=== PATIENT | female | born 1985 | race Caucasian/White ===

== ENCOUNTER 2022-01-27 15:15 | Emergency (ER) | payer OTHER, SELFPAY ==
[2022-01-27 15:24] VITALS: BP 116/65; PULSE 97; RESP 16; TEMP 37.2; O2SAT 98
--- NOTE | 2022-01-27 15:58 | ED.URI ---
HPI - URI/Sore Throat General Chief Complaint: Upper Respiratory Infection Stated Complaint: Fever/Headache/Nausea Time Seen by Provider: 01/27/22 15:55 Source: patient, RN notes reviewed and old records reviewed Mode of arrival: ambulatory Limitations: no limitations History of Present Illness HPI Narrative: 37-year-old male presents to Express fever to 103F headache and the past 24-36 hours patient states he was COVID positive at [place] Related Data Allergies Allergy/AdvReac Type Severity Reaction Status Date / Time No Known Allergies Allergy Verified 01/27/22 15:38 Course Vital Signs Vital signs: Vital Signs Temperature 37.2 C 01/27/22 15:24 Pulse Rate 97 01/27/22 15:24 Respiratory Rate 16 01/27/22 15:24 Blood Pressure 116/65 01/27/22 15:24 Pulse Oximetry 98 01/27/22 15:24 Oxygen Delivery Room Air 01/27/22 15:24 Temperature 37.2 C 01/27/22 15:24 Pulse Rate 97 01/27/22 15:24 Respiratory Rate 16 01/27/22 15:24 Blood Pressure 116/65 01/27/22 15:24 Pulse Oximetry 98 01/27/22 15:24 Oxygen Delivery Room Air 01/27/22 15:24 MDM - URI/Sore Throat Lab Data Labs: Influenza A Screen Negative Reference Range: Negative Influenza B Screen Negative Reference Range: Negative Strep Screen Presumptive Negative *(Reference Range: Negative)* Discharge Plan Discharge Clinical Impression: Acute viral syndrome Patient Disposition: Home, Self-Care Condition: Stable Instructions: Antibiotic Form, Viral Syndrome (ED) Additional Instructions: Increase fluids especially juices and water Glvb-ldc-[id number] cough and cold medicine of your choice for your symptoms Claritin, Zyrtec, or Lupe daily Medrol dose pack directed--take with food heat to the face 20-30 minutes 4-6 times a day for pain Salt water gargles, throat lozenges or throat sprays as desired If your symptoms persist, change or worsen significantly before you can contact your personal physician then please, without delay, go to the emergency department for further evaluation. Follow-up with PCP in 7-10 days or sooner if needed Prescriptions: New methylprednisolone [Medrol ([place])] 4 mg tablets,dose pack 4 mg PO DAILY Qty: 21 0RF Rx Instructions: take per package instruction Follow-up/Referrals: PHYSICIAN,DESIGN AND SALES CONSULTANT [Primary Care Provider] - Time of Disposition: 16:23 Quality [place] Coma Scale Eyes: Open Verbal: Oriented and Alert Motor: Follows Commands [place] Coma Total Score: 15
--- NOTE | 2022-01-27 16:18 | ED.URI ---
HPI - URI/Sore Throat General Chief Complaint: Upper Respiratory Infection Stated Complaint: Fever/Headache/Nausea Time Seen by Provider: 01/27/22 15:55 Source: patient, RN notes reviewed and old records reviewed Mode of arrival: ambulatory Limitations: no limitations History of Present Illness HPI Narrative: 37 year old male who presets to express care with complaints of headache, nausea, and fevers up to 101F and generalized malaise for the past 24 hours. Patient reports that he was diagnosed with COVID 2 weeks. Patient denies any shortness of breath, no acute cough or congestion verbalized. Patient reports that he has not had flu shot this season. Patient has been taking Ibuprofen for his symptoms. MD elicited complaint: fever and other (headache nausea) Pertinent past history: other (covid 2 weeks ago) Onset (ago): day(s) (day 2 of symptoms) Consistency: constant Pain scale (0-10): 5 Treatments prior to arrival: ibuprofen Related Data Allergies Allergy/AdvReac Type Severity Reaction Status Date / Time No Known Allergies Allergy Verified 01/27/22 15:38 Review of Systems Review of Systems: CONSTITUTIONAL: Reports malaise, chills, sweats, or fever. EYES: Denies visual changes, redness, or discharge. ENT: Reports rhinorrhea, congestion, sinus pain,no otalgia and sore throat. CARDIOVASCULAR: Denies chest pain, palpitations, or edema. RESPIRATORY: Reports occasional dry cough ? Denies dyspnea. GASTROINTESTINAL: Denies abdominal pain, positive for nausea, no vomiting, diarrhea SKIN: Denies rash or itching. MUSCULOSKELETAL:Reports myalgia. NEUROLOGIC:Reports headache. All systems reviewed & are unremarkable except as noted in HPI and below PMFSH Past Medical History Medical History COVID-05 January 2022 Social History Social History (Updated 02/05/22 @ 10:47 by Shila Jorge NP) Smoking status: Never smoker Alcohol intake: current Alcohol use details: social Substance use type: does not use Gender identity (if verbalized by the patient): Male Comments At time of signature, agree with nursing past medical, surgical, social and family history. There is no relevant family history pertinent to the presenting complaint Exam Narrative: GENERAL: Well-appearing, well-nourished, and in no acute distress. HEAD: Normocephalic EYES: PERRLA, conjunctivae clear ENT: Nares clear, turbinates edematous and erythematous, clear discharge. Mucous membranes moist. TM pearly hunt with dull light reflex bilaterally; no tragal tenderness. Oropharynx erythematous without lesions. Tonsils not enlarged and without exudate, no drooling, no hoarseness, no trismus, uvula midline.post nasal discharge NECK: Supple. No lymphadenopathy CHEST: Clear to auscultation, breath sounds equal. No wheezing, rhonchi, rales, or stridor. No respiratory distress, speaks in full sentences.dry cough, SAO2 98% on room air HEART: Regular rate and rhythm. No murmur heard. SKIN: Warm, dry, no rash. NEURO: Alert and oriented x3. PSYCH: Normal mood and affect Course Course Emergency Course: Patient is aware of diagnosis, understands and agrees to treatment plan.? Anticipatory guidance given.? Patient agrees to follow-up as directed and is aware of reasons to seek care at the emergency department. Portions of this record may have been created with voice recognition software Level of Care: Express Care Visit Vital Signs Vital signs: Vital Signs Temperature 37.2 C 01/27/22 15:24 Pulse Rate 97 01/27/22 15:24 Respiratory Rate 16 01/27/22 15:24 Blood Pressure 116/65 01/27/22 15:24 Pulse Oximetry 98 01/27/22 15:24 Oxygen Delivery Room Air 01/27/22 15:24 Temperature 37.2 C 01/27/22 15:24 Pulse Rate 97 01/27/22 15:24 Respiratory Rate 16 01/27/22 15:24 Blood Pressure 116/65 01/27/22 15:24 Pulse Oximetry 98 01/27/22 15:24 Oxyge
== END 2022-01-27 16:33 | disposition home or self-care (01) ==
PROVIDERS: Emergency Provider Registered Nurse
DX: B34.9 Viral infection, unspecified (principal); Z86.16 Personal history of COVID-19
CPT/HCPCS: 87081; 87804; 87880; 99213; G0463

== ENCOUNTER 2022-05-11 11:50 | Emergency (ER) | payer OTHER, SELFPAY ==
--- NOTE | ~2022-05-11 | XR_ITS ---
EXAMINATION: XR chest 2V DATE: 05/11/2022 12:28 INDICATION: Cough TECHNIQUE: PA and lateral views of the chest are obtained. COMPARISON: None available FINDINGS: The lungs are free of acute opacities. No pleural effusion or pneumothorax. The cardiomedia stinal silhouette is normal. There is mild thoracic spondylosis. IMPRESSION: 1. No acute cardiopulmonary abnormality. Reviewed, dictated and finalized at location A.
[2022-05-11 12:00] VITALS: BP 114/63; PULSE 103; RESP 16; TEMP 37.2; O2SAT 99
--- NOTE | 2022-05-11 12:24 | ED.URI ---
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 REPORTS FEVER AND GENERALIZED BODY ACHES EYES: DENIES VISUAL CHANGES, REDNESS, OR DISCHARGE. ENT: DENIES OTALGIA. REPORTS NASAL CONGESTION RUNNY NOSE AND SORE THROAT CARDIOVASCULAR: DENIES CHEST PAIN, PALPITATIONS, OR EDEMA. RESPIRATORY: DENIES DYSPNEA. REPORTS OCCASIONAL COUGH GASTROINTESTINAL: DENIES ABDOMINAL PAIN, NAUSEA, VOMITING, OR DIARRHEA. GENITOURINARY: DENIES DYSURIA OR HEMATURIA. SKIN: DENIES RASH OR ITCHING. MUSCULOSKELETAL: DENIES BACK PAIN, JOINT PAIN, OR MYALGIA. REPORTS GENERALIZED BODY ACHES NEUROLOGIC: DENIES HEADACHE, NUMBNESS, OR WEAKNESS. PSYCHIATRIC: DENIES ANXIETY OR DEPRESSION. [facility] Past Medical History Medical History COVID-05 January 2022 Social History Social History (Updated 02/05/22 @ 10:47 by Shila Jorge NP) Smoking status: Never smoker Alcohol intake: current Alcohol use details: social Substance use type: does not use Gender identity (if verbalized by the patient): Male Comments AT TIME OF SIGNATURE, AGREE WITH NURSING PAST MEDICAL, SURGICAL, SOCIAL AND FAMILY HISTORY. THERE IS NO RELEVANT FAMILY HISTORY PERTINENT TO THE PRESENTING COMPLAINT Exam Narrative: THE PATIENT IS A WELL-DEVELOPED, WELL-NOURISHED IN NO ACUTE DISTRESS. SKIN: SKIN IS WARM AND DRY WITHOUT ERYTHEMA, SWELLING OR EXUDATE. THERE IS GOOD TURGOR. NO TENTING. HEAD: ATRAUMATIC. NORMOCEPHALIC. NO TEMPORAL OR SCALP TENDERNESS. EYES: MOIST AND BRIGHT. SCLERA AND CONJUNCTIVAE NORMAL. NO DISCHARGE. PERRLA. EXTRAOCULAR MOTIONS INTACT. GROSS VISUAL ACUITY INTACT. EARS: PINNA IS NORMAL SHAPE AND CONTOUR. CLEAR EXTERNAL AUDITORY CANALS. TM PEARLY MONTOYA WITH GOOD CONE OF LIGHT, NO ERYTHEMA OR SUPPURATION. BILATERAL CERUMEN NOTED NO GROSS HEARING DEFICIT. NOSE: PINK, MOIST MUCOSA WITH GOOD AIR MOVEMENT. CLEAR RHINORRHEA WITHOUT NASAL FLARING. SEPTUM MIDLINE. MOUTH: MOIST MUCOUS MEMBRANES. THROAT; MILD ERYTHEMA NOTED TO POSTERIOR OROPHARYNX WITH MODERATE POSTNASAL DRAINAGE. WITHOUT EXUDATE OR ULCERATION.. UVULA MIDLINE. NORMAL MOVEMENT OF SOFT PALATE. NECK: SUPPLE AND NONTENDER WITH FULL RANGE OF MOTION WITHOUT DISCOMFORT. NO MENINGEAL SIGNS. LUNGS: EQUAL AND BILATERAL BREATH SOUNDS WITHOUT WHEEZES, RALES OR RHONCHI. CHEST: THE CHEST WALL IS WITHOUT RETRACTIONS OR USE OF ACCESSORY MUSCLES. HEART: HAS A REGULAR RATE AND RHYTHM WITHOUT MURMUR, GALLOPS, CLICK OR RUB. ABDOMEN: SOFT, NONTENDER WITH POSITIVE ACTIVE BOWEL SOUNDS. NO REBOUND TENDERNESS. EXTREMITIES: WITHOUT CYANOSIS, CLUBBING OR EDEMA. EQUAL 2+ DISTAL PULSES AND 2 SECOND CAPILLARY REFILL NOTED. NEUROLOGIC: ALERT, ACTIVE, . THE PATIENT MOVES ALL EXTREMITIES WITH NORMAL MUSCLE STRENGTH. NORMAL MUSCLE TONE IS NOTED. NORMAL COORDINATION IS NOTED. NO FOCAL NEUROLOGICAL FINDINGS NOTED. Course Course Level of Care: Express Care Visit Vital Signs Vital signs: Vital Signs Temperature 37.2 C 05/11/22 12:00 Pulse Rate 103 H 05/11/22 12:00 Respiratory Rate 16 05/11/22 12:00 Blood Pressure 114/63 05/11/22 12:00 Pulse Oximetry 99 05/11/22 12:00 Oxygen Delivery Room Air 05/11/22 12:00 Temperature 37.2 C 05/11/22 12:00 Pulse Rate 103 H 05/11/22 12:00 Respiratory Rate 16 05/11/22 12:00 Blood Pressure 114/63 05/11/22 12:00 Pulse Oximetry 99 05/11/22 12:00 Oxygen Delivery Room Air 05/11/22 12:00 Discharge Plan Discharge Clinical Impr
== END 2022-05-11 12:54 | disposition home or self-care (01) ==
PROVIDERS: Emergency Provider Nurse Practitioner Family; PCP Emergency Medicine
DX: J06.9 Acute upper respiratory infection, unspecified (principal); J40 Bronchitis, not specified as acute or chronic; Z86.16 Personal history of COVID-19
CPT/HCPCS: 71046; 99213; G0463

== ENCOUNTER 2024-10-04 14:53 | Emergency (ER) | payer OTHER, SELFPAY ==
--- NOTE | ~2024-10-04 | XR_ITS ---
EXAMINATION: XR ankle RT min 3V DATE: 10/04/2024 15:17 INDICATION: Injury one week ago TECHNIQUE: 4 images of the right ankle were obtained COMPARISON: None. FINDINGS: No acute fracture or dislocation. Talar dome is unremarkable. Mild soft tissue swelling about the rig ht ankle. IMPRESSION: 1. No acute bony abnormality identified. If symptoms persist or worsen, consider a short-term follow-up study or additional imaging for furthe r assessment. Reviewed, dictated and finalized at location A. IMPRESSION: 1. No acute bony abnormality identified. If symptoms persist or worsen, consider a short-term follow-up study or additio nal imaging for further assessment.
[2024-10-04 15:05] VITALS: BP 135/74; PULSE 82; RESP 16; TEMP 36.6; O2SAT 100
--- NOTE | 2024-10-04 15:35 | ED.LOWEXIN ---
HPI - Extremity Injury (Lower) General Chief Complaint: Extremity Injury, Lower Stated Complaint: right ankle pain Time Seen by Provider: 10/04/24 15:25 Source: patient and RN notes reviewed Mode of arrival: ambulatory Limitations: no limitations History of Present Illness HPI Narrative: 39-year-old male Presents Express Care complaining of injury to right ankle. Patient reports rolledin his right ankle over cord at home. Patient denies any falls or any other injuries. Patient's has been taking Tylenol and ibuprofen with mild relief. Patient says there is mild pain with bearing weight on his right foot. Patient denies any numbness, tingling or any other injuries. Patient denies any significant past medical history. Related Data Allergies Allergy/AdvReac Type Severity Reaction Status Date / Time No Known Allergies Allergy Verified 01/27/22 15:38 Review of Systems Review of Systems: CONSTITUTIONAL: Denies fever, chills, or sweats. EYES: Denies visual changes, redness, or discharge. ENT: Denies rhinorrhea, congestion, sore throat, or otalgia. CARDIOVASCULAR: Denies chest pain, palpitations, or edema. RESPIRATORY: Denies cough or dyspnea. GASTROINTESTINAL: Denies abdominal pain, nausea, vomiting, or diarrhea. GENITOURINARY: Denies dysuria or hematuria. SKIN: Denies rash, wound, or itching. MUSCULOSKELETAL: Denies back pain, joint pain, or myalgia. Positive for right ankle injury and swelling NEUROLOGIC: Denies headache, numbness, or weakness. PSYCHIATRIC: Denies anxiety or depression. All other systems reviewed are negative, except as documented in HPI. [facility] Past Medical History Medical History COVID-05 January 2022 Social History Social History Smoking status: Never smoker Alcohol intake: current Alcohol use details: social Substance use type: does not use Gender identity (if verbalized by the patient): Male Comments At the time of my signature, I reviewed and agree with the nursing past medical, surgical, social, and family history. There is no relevant family history pertinent to the patient complaint. Exam Narrative: GENERAL: This is a well-nourished, well-developed adult, in no apparent distress. They are non ill-appearing, nontoxic appearing. HEAD: normocephalic, atraumatic. EYES: Sclera clear/white. Vision is grossly intact. Conjunctiva normal. Extraocular movement intact. EARS: External ears normal Hearing grossly intact. NOSE: External nose normal THROAT: Mucous membranes moist NECK: Neck supple CARDIOVASCULAR: Regular rate and rhythm RESPIRATORY: Respiratory rate normal, respiratory effort nonlabored, no respiratory distress NEURO: awake, alert, and oriented to person, place and time. There were no obvious focal neurologic abnormalities. EXTREMITIES: Right ankle: No obvious deformity, injury, bruising, or redness. Mild swelling present. Pain through full range of motion. Mild tenderness to the medial ankle. Capillary refill less than 3 seconds. Right pedal Pulse 2 +palpable. Normal sensation. Neurovascular status intact distal injury. Patient able to wiggle his toes. Negative Ames's test. BACK: Nontender without deformity. Course Course Emergency Course: Portions of this record may have been created with voice recognition software Level of Care: Express Care Visit Vital Signs Vital signs: Vital Signs Temperature 97.9 F 10/04/24 15:05 Pulse Rate 82 10/04/24 15:05 Respiratory Rate 16 10/04/24 15:05 Blood Pressure 135/74 10/04/24 15:05 Pulse Oximetry 100 10/04/24 15:05 Oxygen Delivery Room Air 10/04/24 15:05 Temperature 97.9 F 10/04/24 15:05 Pulse Rate 82 10/04/24 15:05 Respiratory Rate 16 10/04/24 15:05 Blood Pressure 135/74 10/04/24 15:05 Pulse Oximetry 100 10/04/24 15:05 Oxygen Delivery Room Air 10/04/24 15:05 Reviewed MDM - Extremity Injury (Lower) [facility] Narrative Medical decision making narrative: X-ray right ankle negative for any fractures or acute findings. Patient likely has an ankle sprain. Patient given Dale wrap for compression. Patient given crutches to use as needed if he is having pain with bearing weight. Will refer to Ortho especially pain persists another week. Discussed physical exam findings. Advised supportive measures and signs/symptoms to go to the ER. Pt is appropriate for outpt treatment and f/u. Differential Diagnosis Differential diagnosis: Likely ankle sprain and strain, ankle fracture and other (Foot Fracture) Imaging Data Radiologist's impression: ITS Impressions Ankle X-Ray 10/04/24 15:22 IMPRESSION: 1. No acute bony abnormality identified. If symptoms persist or worsen, consider a short-term follow-up study or additional imaging for further assessment. Critical Care Time Critical Care Time Critical Care Time: No Discharge Plan Discharge Clinical Impression: Ankle sprain and strain Patient Disposition: Home Condition: Stable Instructions: Ankle Sprain (ED) Additional Instructions: The x-ray right ankle is negative for any fractures or acute findings. Rest and elevate the leg; bear weight as tolerated. You may use crutches as needed Apply ice 15-20 minute intervals several times a day Keep it wrapped with DALE or use a soft ankle splint You may take ibuprofen 600 mg to 800 mg every 6-8 hours. Do not exceed more than 800 mg of ibuprofen per dose. Do not exceed more than 3200 mg ibuprofen in a day. You may take up to 1000 mg Tylenol every 6-8 hours. Do not exceed 1000 mg per dose, do exceed more than 4000 mg of Tylenol in a day. Follow up with your primary care provider or orthopedist in 1 week. Patient Language: French Follow-up/Referrals: PHYSICIAN,DIRECTOR OF KIDS [Primary Care Provider] - Tony Patel MD [Physician] - Time of Disposition: 15:34
--- OUTSIDE RECORDS SUMMARY | 2024-10-04 15:53 | XMS_ITS | Clinical Summary ---
Author Organization [facility] Address [address] [place] [id number] Care Team Providers Care Flour Mixer Name Role Phone Alia Mooney MD Primary Care Provider + [phone] Allergies Active Allergy Reactions Criticality Noted Date Comments Loratadine Dizziness Medium 04/15/2022 Light headed Medications esomeprazole (NEXIUM) 20 MG capsuleIndicatio ns:Gastroesophag eal reflux disease, unspecified whether esophagitis present Take 1 capsule (20 mg total) by mouth every morning before breakfast. 30 capsule 04/15/2022 Active omeprazole (PRILOSEC) 20 MG capsuleIndicatio ns:Gastroesophag eal reflux disease, unspecified whether esophagitis present Take 1 capsule (20 mg total) by mouth daily. 30 capsule 1 04/17/2022 Active Active Problems Problem Noted Date Diagnosed Date Gastroesophageal reflux dise ase, unspecified whether esophagitis present 04/15/2022 Immunizations Immunization Administration Dates Next Due Tdap (Adacel) 04/15/2022 Family History Medical History Relation Comments Prostate Cancer Father Colon Cancer Maternal Grandfather DIAMANTE disease Mother Relation Status Comments Father Maternal Grandfather Mother Social History Tobacco Use Types Packs/Day Years Used Date Smoking Tobacco: Never Passive Smoke Exposure: Never Smokeless Tobacco: Never Tobacco Cessation:Counseling Given: No Comments:Tried a cigg once Alcohol Use Standard Drinks/Week Comments Not Currently 0 (1 standard drink = 0.6 oz pur e alcohol) in the past in college PHQ-2 Answer Date Recorded Patient Health Questionnaire-2 Score 1 04/15/2022 Sex and Gender Information Value Date Recorded Sex Assigned at Not on file 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 Gender Identity Not on file Sexual Orientation Not on file Last Filed Vital Signs Vital Sign Reading Time Taken Comments Blood Pressure 118/82 04/15/2022 11:38 AM LINE UP MACHINE OPERATOR Pulse 76 04/15/2022 11:38 AM LINE UP MACHINE OPERATOR Temperature 36.1 C (96.9 F) 04/15/2022 11:38 AM LINE UP MACHINE OPERATOR Respiratory Rate 14 04/15/2022 11:3 8 AM LINE UP MACHINE OPERATOR Oxygen Saturation 99% 04/15/2022 11: 38 AM LINE UP MACHINE OPERATOR Inhaled Oxygen Concentration - - Weight 71.2 kg (156 lb 14.4 oz) 023 11:38 AM LINE UP MACHINE OPERATOR Height 179.1 cm (5' 10.5) 04/15/2022 1 1:38 AM LINE UP MACHINE OPERATOR Body Mass Index 22.19 04/15/2022 11:38 AM LINE UP MACHINE OPERATOR Plan of Treatment Health Maintenance Due Date Last Done Comments Annual Physical 1990 Hepatitis C 2005 Hepatitis B Vaccines (1 of 3 - 19+ 3-dose series) 2006 HPV Vaccines (1 - 3-dose SCD M series) 2014 COVID-19 Vaccine (4 - 2023-2 5 season) 2023 01/17/2021, 06/06/2020, 05/16/2020 DTaP, Tdap and Td Vaccines ( 2 - Td or Tdap) 04/15/2032 04/15/2022 Meningococcal B Vaccine Aged Out No l onger eligible based on patient's age to complete this topic Meningococcal Vaccine Aged Out No chris diamante eligible based on patient's age to complete this topic Pneumococcal Vaccine: Pediatrics (0 to 5 Years) and At-Risk Patients (6 to 49 Years) Aged Out No longer eligible b ased on patient's age to complete this topic RSV Immunizations Under 20 Months Aged Out No longer eligible b ased on patient's age to complete this topic Insurance [employer] Care Teams Flour Mixer Relationship Specialty Start Date End Date Alia Mooney MD [address] [facility] [facility] [address] [place] [address] PCP - General FAMILY PRACTICE 04/15/22
== END 2024-10-04 15:48 | disposition home or self-care (01) ==
DX: S93.401A Sprain of unspecified ligament of right ankle, initial encounter (principal); X58.XXXA Exposure to other specified factors, initial encounter
CPT/HCPCS: 73610; 99213; G0463